=== PATIENT | male | born 1995 ===

== ENCOUNTER 2020-02-04 14:48 | Outpatient (CLI) | payer OTHER | END 2020-02-04 15:24 | disposition home or self-care (01) | LOC: EDBD 14:48 → RAD 14:48 | DX: J20.8 Acute bronchitis due to other specified organisms (principal) ==

== ENCOUNTER 2020-04-15 15:39 | Emergency (ER) | payer OTHER ==
[~2020-04-15] VITALS: Ht 152.4 cm; Wt 68.0 kg
== END 2020-04-15 20:00 | disposition home or self-care (01) ==
LOC: ER 15:39
DX: R30.0 Dysuria (principal)